=== PATIENT | female | born 1960 | race Caucasian/White ===

== ENCOUNTER → 2023-07-30 14:13 | Outpatient (REF) | payer BC, SELFPAY ==
[2023-07-30 16:31] LABS: Hematocrit 39.5 % (37.0-47.0); Hemoglobin 13.8 g/dL (12.0-16.0); Mean Corp Hgb Conc. 34.9 g/dL (33.0-37.0); Mean Corpuscular Hgb 32.5 pg (27.0-31.0); Mean Corpuscular Volume 92.9 fL (81.0-99.0); Mean Platelet Volume 9.5 fL (7.4-10.4); Platelet Count 194 10^3/uL (130-400); Red Blood Cell Count 4.25 10^6/uL (4.20-5.40); Red Cell Dist. Width 12.1 % (11.5-14.5); White Blood Cell Count 5.7 10^3/uL (4.8-10.8)
[2023-07-30 16:55] LABS: Blood Urea Nitrogen 18 mg/dl (7-17); Calcium 11.2 mg/dl (8.4-10.2); Carbon Dioxide 32 mmol/L (22-30); Chloride 98 mmol/L (98-107); Glucose 93 mg/dl (70-99); Magnesium 2.3 mg/dl (1.6-2.3); Potassium 4.5 mmol/L (3.5-5.1); Sodium 139 mmol/L (135-145); eGFR > 60.00
[2023-07-30 17:11] LABS: Free T4 1.58 ng/dl (0.78-2.19)
[2023-08-03 17:12] LABS: Myeloperoxidase Antibody 0 AU/mL (0-19)
== END ==
LOC: REG 14:13
PROVIDERS: ATTENDING PHYSICIAN Internal Medicine Endocrinology, Diabetes & Metabolism; REFERRING PHYSICIAN Nurse Practitioner
DX: R06.02 Shortness of breath (principal); E03.2 Hypothyroidism due to medicaments and other exogenous substances
CPT/HCPCS: 36415; 80048; 83516; 83735; 84439; 84443; 85027

== ENCOUNTER → 2023-09-17 08:57 | Outpatient (REF) | payer BC, SELFPAY ==
[2023-09-17 10:13] LABS: Ionized Calcium 1.36 mMOL/L (1.15-1.33)
[2023-09-17 10:58] LABS: ALT (SGPT) 17 U/L (0-35); AST (SGOT) 33 U/L (14-36); Albumin 4.6 g/dl (3.5-5.0); Alkaline Phosphatase 73 U/L (38-126); Blood Urea Nitrogen 19 mg/dl (7-17); Calcium 10.9 mg/dl (8.4-10.2); Carbon Dioxide 32 mmol/L (22-30); Chloride 102 mmol/L (98-107); Glucose 85 mg/dl (70-99); Potassium 4.2 mmol/L (3.5-5.1); Sodium 139 mmol/L (135-145); Total Bilirubin 0.8 mg/dl (0.2-1.3); Total Protein 6.7 g/dl (6.3-8.2); eGFR > 60.00
[2023-09-17 11:16] LABS: Vitamin D, 25-OH*** 37.5 ng/mL (30-80)
[2023-09-18 12:14] LABS: Intact PTH 124.8 pg/ml (13.6-85.8)
[2023-09-19 02:24] LABS: Vitamin D 1,25 Dihydroxy 47.8 pg/mL (19.9-79.3)
[2023-09-21 03:17] LABS: PTH Related Peptide LC-MS/MS 2.9 pmol/L (0.0-3.4)
== END ==
LOC: REG 08:57
PROVIDERS: ATTENDING PHYSICIAN Internal Medicine Endocrinology, Diabetes & Metabolism
DX: E03.2 Hypothyroidism due to medicaments and other exogenous substances (principal); E83.52 Hypercalcemia; E55.9 Vitamin D deficiency, unspecified
CPT/HCPCS: 36415; 80053; 82306; 82330; 82652; 83519; 83970

== ENCOUNTER → 2023-10-06 09:10 | Outpatient (REF) | payer MEDICARE, OTHER, SELFPAY | LOC: RAD 09:10 | PROVIDERS: ATTENDING PHYSICIAN Internal Medicine Endocrinology, Diabetes & Metabolism | DX: E83.52 Hypercalcemia (principal) | CPT/HCPCS: 76536; 78071; A9500 ==

== ENCOUNTER → 2023-11-10 07:52 | Outpatient (REF) | payer MEDICARE, OTHER, SELFPAY | LOC: MRI 07:52 | PROVIDERS: ATTENDING PHYSICIAN Neurological Surgery; OTHER PHYSICIAN Nurse Practitioner Acute Care; REFERRING PHYSICIAN Otolaryngology | DX: D33.4 Benign neoplasm of spinal cord (principal); R26.89 Other abnormalities of gait and mobility; G44.219 Episodic tension-type headache, not intractable | CPT/HCPCS: 70553; 72156; A9575 ==

== ENCOUNTER → 2023-11-12 15:03 | Outpatient (REF) | payer MEDICARE, OTHER, SELFPAY | LOC: HWRCS 15:03 | PROVIDERS: ATTENDING PHYSICIAN Nurse Practitioner | DX: R06.02 Shortness of breath (principal) | CPT/HCPCS: 93306 ==

== ENCOUNTER → 2023-12-14 10:18 | Outpatient (REF) | payer MEDICARE, OTHER, SELFPAY ==
[2023-12-14 11:18] LABS: % Eosinophils 6.4 % (0-6); % Immature Granulocytes 0.2 % (0-0.5); % Lymphocytes 31.9 % (20.5-51.1); % Monocytes 8.4 % (1.7-9.3); % Neutrophils 51.1 % (42.2-75.2); Absolute Basophils 0.1 10^3/uL (0-0.2); Absolute Eosinophils 0.3 10^3/uL (0-0.7); Absolute Lymphocytes 1.6 10^3/uL (1.2-3.4); Absolute Monocytes 0.4 10^3/uL (0.1-0.6); Absolute Neutrophils 2.6 10^3/uL (1.4-6.5); Hematocrit 39.3 % (37.0-47.0); Hemoglobin 13.8 g/dL (12.0-16.0); Mean Corp Hgb Conc. 35.1 g/dL (33.0-37.0); Mean Corpuscular Hgb 32.8 pg (27.0-31.0); Mean Corpuscular Volume 93.3 fL (81.0-99.0); Nucleated Red Blood Cells % 0 %; Platelet Count 172 10^3/uL (130-400); Red Blood Cell Count 4.21 10^6/uL (4.20-5.40); Red Cell Dist. Width 12.2 % (11.5-14.5)
[2023-12-14 11:30] LABS: Ionized Calcium 1.37 mMOL/L (1.15-1.33)
[2023-12-14 11:59] LABS: Blood Urea Nitrogen 20 mg/dl (7-17); Calcium 10.8 mg/dl (8.4-10.2); Carbon Dioxide 32 mmol/L (22-30); Chloride 101 mmol/L (98-107); Glucose 88 mg/dl (70-99); Potassium 4.4 mmol/L (3.5-5.1); Sodium 139 mmol/L (135-145); eGFR > 60.00
[2023-12-14 12:06] LABS: Intact PTH 173.5 pg/ml (13.6-85.8)
[2023-12-14 12:11] LABS: Vitamin D, 25-OH*** 33.1 ng/mL (30-80)
== END ==
LOC: REG 10:18
PROVIDERS: OTHER PHYSICIAN Surgery
DX: E21.3 Hyperparathyroidism, unspecified (principal)
CPT/HCPCS: 36415; 80048; 82306; 82330; 83970; 85025; 93005

== ENCOUNTER → 2024-01-20 11:42 | Outpatient (REF) | payer MEDICARE, OTHER, SELFPAY ==
[2024-01-20 12:40] LABS: Ionized Calcium 1.19 mMOL/L (1.15-1.33)
[2024-01-20 13:29] LABS: ALT (SGPT) 14 U/L (0-35); AST (SGOT) 30 U/L (14-36); Albumin 4.5 g/dl (3.5-5.0); Alkaline Phosphatase 72 U/L (38-126); Blood Urea Nitrogen 18 mg/dl (7-17); Calcium 9.8 mg/dl (8.4-10.2); Carbon Dioxide 33 mmol/L (22-30); Chloride 102 mmol/L (98-107); Glucose 86 mg/dl (70-99); Potassium 4.7 mmol/L (3.5-5.1); Sodium 142 mmol/L (135-145); Total Bilirubin 0.6 mg/dl (0.2-1.3); Total Protein 6.4 g/dl (6.3-8.2); eGFR > 60.00
[2024-01-20 13:49] LABS: Free T4 1.45 ng/dl (0.78-2.19); Vitamin D, 25-OH*** 37.3 ng/mL (30-80)
[2024-01-20 14:03] LABS: TSH 0.28 uIU/ml (0.47-4.68)
[2024-01-22 10:09] LABS: Intact PTH 57.4 pg/ml (13.6-85.8)
[2024-01-22 14:24] LABS: Thyroglobulin 0.1 ng/mL (1.3-31.8); Thyroglobulin Antibodies <0.9 IU/mL (0.0-4.0)
== END ==
LOC: REG 11:42
PROVIDERS: ATTENDING PHYSICIAN Internal Medicine Endocrinology, Diabetes & Metabolism; REFERRING PHYSICIAN Nurse Practitioner Family
DX: E21.3 Hyperparathyroidism, unspecified (principal); E03.2 Hypothyroidism due to medicaments and other exogenous substances; E83.52 Hypercalcemia; E55.9 Vitamin D deficiency, unspecified; Z85.850 Personal history of malignant neoplasm of thyroid
CPT/HCPCS: 36415; 80053; 82306; 82330; 82652; 83519; 83970; 84432; 84439; 84443; 86800

== ENCOUNTER → 2024-05-02 11:25 | Outpatient (REF) | payer MEDICARE, OTHER, SELFPAY ==
[2024-05-02 12:41] LABS: Ionized Calcium 1.24 mMOL/L (1.15-1.33)
[2024-05-02 12:46] LABS: % Basophils 1.9 % (0-2); % Immature Granulocytes 0.2 % (0-0.5); % Lymphocytes 34.2 % (20.5-51.1); % Monocytes 8.7 % (1.7-9.3); Absolute Basophils 0.1 10^3/uL (0-0.2); Absolute Eosinophils 0.3 10^3/uL (0-0.7); Absolute Lymphocytes 1.8 10^3/uL (1.2-3.4); Absolute Monocytes 0.5 10^3/uL (0.1-0.6); Absolute Neutrophils 2.6 10^3/uL (1.4-6.5); Hematocrit 42.2 % (37.0-47.0); Hemoglobin 14.3 g/dL (12.0-16.0); Mean Corp Hgb Conc. 33.9 g/dL (33.0-37.0); Mean Corpuscular Hgb 32.4 pg (27.0-31.0); Mean Corpuscular Volume 95.5 fL (81.0-99.0); Mean Platelet Volume 9.3 fL (7.4-10.4); Nucleated Red Blood Cells % 0 %; Platelet Count 189 10^3/uL (130-400); Red Blood Cell Count 4.42 10^6/uL (4.20-5.40); Red Cell Dist. Width 12.3 % (11.5-14.5); White Blood Cell Count 5.3 10^3/uL (4.8-10.8)
[2024-05-02 13:17] LABS: Calcium 9.8 mg/dl (8.4-10.2)
[2024-05-02 13:19] LABS: ALT (SGPT) 18 U/L (0-35); AST (SGOT) 31 U/L (14-36); Albumin 4.8 g/dl (3.5-5.0); Alkaline Phosphatase 65 U/L (38-126); Blood Urea Nitrogen 17 mg/dl (7-17); Calcium 9.7 mg/dl (8.4-10.2); Carbon Dioxide 32 mmol/L (22-30); Chloride 101 mmol/L (98-107); Glucose 92 mg/dl (70-99); HDL Cholesterol 104 mg/dl; LDL Cholesterol, Calculated 150 mg/dl; Potassium 4.3 mmol/L (3.5-5.1); Sodium 142 mmol/L (135-145); Total Bilirubin 0.5 mg/dl (0.2-1.3); Total Cholesterol 269 mg/dl (50-199); Total Protein 6.8 g/dl (6.3-8.2); Triglyceride 76 mg/dl (10-149); Very Low Density Lipoprotein 15 mg/dl (0-30); eGFR > 60.00
[2024-05-02 13:34] LABS: Free T4 1.86 ng/dl (0.78-2.19)
[2024-05-03 11:24] LABS: Intact PTH 89.8 pg/ml (13.6-85.8)
== END ==
LOC: REG 11:25
PROVIDERS: ATTENDING PHYSICIAN Internal Medicine Endocrinology, Diabetes & Metabolism; FAMILY PHYSICIAN Physical Medicine & Rehabilitation; OTHER PHYSICIAN Nurse Practitioner Family; REFERRING PHYSICIAN Nurse Practitioner
DX: E03.2 Hypothyroidism due to medicaments and other exogenous substances (principal); Z85.850 Personal history of malignant neoplasm of thyroid; E83.52 Hypercalcemia; R00.2 Palpitations; I49.3 Ventricular premature depolarization; E21.3 Hyperparathyroidism, unspecified
CPT/HCPCS: 36415; 80053; 80061; 82330; 83970; 84439; 84443; 85025

== ENCOUNTER → 2024-05-03 13:09 | Outpatient (REF) | payer MEDICARE, OTHER, SELFPAY ==
[2024-05-03 14:56] LABS: Vitamin D, 25-OH*** 33.3 ng/mL (30-80)
[2024-05-05 18:29] LABS: Thyroglobulin <0.1 ng/mL (1.3-31.8); Thyroglobulin Antibodies <0.9 IU/mL (0.0-4.0); Thyroid Peroxidase Ab (TPO) 10.9 IU/mL (0.0-9.0)
== END ==
LOC: RCS 13:09
PROVIDERS: ATTENDING PHYSICIAN Internal Medicine Endocrinology, Diabetes & Metabolism; FAMILY PHYSICIAN Nurse Practitioner Family
DX: R00.2 Palpitations (principal); I49.3 Ventricular premature depolarization
CPT/HCPCS: 36415; 82306; 84432; 86376; 86800; 93225; 93226

== ENCOUNTER → 2024-05-05 14:46 | Outpatient (REF) | payer MEDICARE, OTHER, SELFPAY | LOC: RAD 14:46 | PROVIDERS: ATTENDING PHYSICIAN Internal Medicine Cardiovascular Disease | DX: R53.83 Other fatigue (principal) | CPT/HCPCS: 71046 ==

== ENCOUNTER → 2024-07-20 14:24 | Outpatient (REF) | payer MEDICARE, OTHER, SELFPAY ==
[2024-07-20 15:33] LABS: % Basophils 1.9 % (0-2); % Eosinophils 5.3 % (0-6); % Immature Granulocytes 0.2 % (0-0.5); % Monocytes 6.6 % (1.7-9.3); Absolute Basophils 0.1 10^3/uL (0-0.2); Absolute Eosinophils 0.3 10^3/uL (0-0.7); Absolute Lymphocytes 1.7 10^3/uL (1.2-3.4); Absolute Monocytes 0.4 10^3/uL (0.1-0.6); Absolute Neutrophils 2.8 10^3/uL (1.4-6.5); Hematocrit 39.4 % (37.0-47.0); Hemoglobin 13.4 g/dL (12.0-16.0); Mean Corpuscular Hgb 32.1 pg (27.0-31.0); Mean Corpuscular Volume 94.3 fL (81.0-99.0); Nucleated Red Blood Cells % 0 %; Platelet Count 174 10^3/uL (130-400); Red Blood Cell Count 4.18 10^6/uL (4.20-5.40); Red Cell Dist. Width 12.3 % (11.5-14.5); White Blood Cell Count 5.3 10^3/uL (4.8-10.8)
[2024-07-20 15:54] LABS: Alkaline Phosphatase 70 U/L (38-126); Blood Urea Nitrogen 22 mg/dl (7-17); Calcium 9.7 mg/dl (8.4-10.2); Carbon Dioxide 30 mmol/L (22-30); Chloride 99 mmol/L (98-107); Glucose 87 mg/dl (70-99); Phosphorus 3.7 mg/dl (2.5-4.5); Potassium 4.3 mmol/L (3.5-5.1); Sodium 137 mmol/L (135-145); eGFR > 60.00
[2024-07-20 16:10] LABS: Free T4 1.51 ng/dl (0.78-2.19); Vitamin D, 25-OH*** 33.9 ng/mL (30-80)
[2024-07-20 16:23] LABS: TSH 0.78 uIU/ml (0.47-4.68)
[2024-07-22 09:36] LABS: Intact PTH 69.1 pg/ml (13.6-85.8)
[2024-07-22 15:57] LABS: Thyroglobulin 0.1 ng/mL (1.3-31.8); Thyroglobulin Antibodies <1.5 IU/mL (0.0-4.0)
[2024-07-22 21:32] LABS: Total T3 (Sendout) 92 ng/dL (80-200)
== END ==
LOC: REG 14:24
PROVIDERS: ATTENDING PHYSICIAN Internal Medicine; OTHER PHYSICIAN Nurse Practitioner Family; OTHER PHYSICIAN Surgery
DX: E21.3 Hyperparathyroidism, unspecified (principal); Z85.850 Personal history of malignant neoplasm of thyroid; M47.816 Spondylosis without myelopathy or radiculopathy, lumbar region; D33.4 Benign neoplasm of spinal cord; C79.51 Secondary malignant neoplasm of bone
CPT/HCPCS: 36415; 80048; 82306; 82310; 82330; 83970; 84075; 84100; 84432; 84436; 84439; 84443; 84480; 85025; 86800

== ENCOUNTER → 2024-08-17 13:02 | Outpatient (REF) | payer MEDICARE, OTHER, SELFPAY | LOC: RCS 13:02 | PROVIDERS: ATTENDING PHYSICIAN Internal Medicine Cardiovascular Disease | DX: R00.2 Palpitations (principal); I49.3 Ventricular premature depolarization; I34.0 Nonrheumatic mitral (valve) insufficiency; I49.1 Atrial premature depolarization; E78.00 Pure hypercholesterolemia, unspecified; R00.0 Tachycardia, unspecified | CPT/HCPCS: 93017; 93350 ==

== ENCOUNTER → 2024-09-28 13:08 | Outpatient (REF) | payer MEDICARE, OTHER, SELFPAY | LOC: RAD 13:08 | PROVIDERS: ATTENDING PHYSICIAN Internal Medicine; REFERRING PHYSICIAN Internal Medicine Cardiovascular Disease | DX: E21.3 Hyperparathyroidism, unspecified (principal); C73 Malignant neoplasm of thyroid gland | CPT/HCPCS: 76536 ==

== ENCOUNTER → 2024-11-09 14:37 | Outpatient (REF) | payer MEDICARE, OTHER, SELFPAY ==
[2024-11-09 16:15] LABS: Blood Urea Nitrogen 17 mg/dl (7-17); Calcium 9.5 mg/dl (8.4-10.2); Carbon Dioxide 31 mmol/L (22-30); Chloride 105 mmol/L (98-107); Glucose 92 mg/dl (70-99); Phosphorus 3.3 mg/dl (2.5-4.5); Potassium 4.3 mmol/L (3.5-5.1); Sodium 140 mmol/L (135-145); eGFR > 60.00
[2024-11-09 16:30] LABS: Free T4 1.67 ng/dl (0.78-2.19)
[2024-11-09 16:44] LABS: TSH 0.38 uIU/ml (0.47-4.68)
[2024-11-10 15:20] LABS: Intact PTH 109.5 pg/ml (13.6-85.8)
[2024-11-11 21:15] LABS: Thyroglobulin <0.1 ng/mL (1.3-31.8); Thyroglobulin Antibodies <1.5 IU/mL (0.0-4.0)
[2024-11-12 05:16] LABS: Total T3 (Sendout) 111 ng/dL (80-200)
== END ==
LOC: RAD 14:37
PROVIDERS: ATTENDING PHYSICIAN Internal Medicine
DX: C73 Malignant neoplasm of thyroid gland (principal); E21.3 Hyperparathyroidism, unspecified
CPT/HCPCS: 36415; 80048; 83970; 84100; 84432; 84439; 84443; 84480; 86800

== ENCOUNTER → 2024-11-16 15:08 | Outpatient (REF) | payer MEDICARE, OTHER, SELFPAY | LOC: RAD 15:08 | PROVIDERS: ATTENDING PHYSICIAN Specialist; OTHER PHYSICIAN Internal Medicine Cardiovascular Disease | DX: R10.13 Epigastric pain (principal) | CPT/HCPCS: 76770 ==

== ENCOUNTER 2024-11-17 06:21 | Day surgery (SDC) | payer MEDICARE, OTHER, SELFPAY | END 2024-11-17 12:30 | disposition home or self-care (01) | LOC: GI 06:21 | PROVIDERS: ATTENDING PHYSICIAN Specialist | DX: R13.10 Dysphagia, unspecified (principal); R07.89 Other chest pain; K22.2 Esophageal obstruction; K31.7 Polyp of stomach and duodenum | CPT/HCPCS: 43239; 88305 ==

== ENCOUNTER → 2025-03-07 13:43 | Outpatient (REF) | payer MEDICARE, OTHER, SELFPAY ==
[2025-03-07 15:02] LABS: 24 Hour Urine Total Volume 1600 ml
== END ==
LOC: REG 13:43
PROVIDERS: ATTENDING PHYSICIAN Internal Medicine
DX: E21.3 Hyperparathyroidism, unspecified (principal)
CPT/HCPCS: 81050; 82340; 82570

== ENCOUNTER → 2025-03-14 10:21 | Outpatient (REF) | payer MEDICARE, OTHER, SELFPAY | LOC: RAD 10:21 | PROVIDERS: ATTENDING PHYSICIAN Internal Medicine | DX: R10.9 Unspecified abdominal pain (principal); N20.0 Calculus of kidney | CPT/HCPCS: 74176 ==

== ENCOUNTER → 2025-03-19 08:55 | Outpatient (REF) | payer MEDICARE, OTHER, SELFPAY ==
[2025-03-19 13:20] LABS: Blood Urea Nitrogen 15 mg/dl (7-17); Calcium 9.8 mg/dl (8.4-10.2); Carbon Dioxide 33 mmol/L (22-30); Chloride 103 mmol/L (98-107); Glucose 59 mg/dl (70-99); Potassium 4.2 mmol/L (3.5-5.1); Sodium 142 mmol/L (135-145); eGFR > 60.00
[2025-03-19 13:35] LABS: TSH 1.00 uIU/ml (0.47-4.68)
== END ==
LOC: RAD 08:55
PROVIDERS: ATTENDING PHYSICIAN Internal Medicine
DX: E21.0 Primary hyperparathyroidism (principal); C73 Malignant neoplasm of thyroid gland
CPT/HCPCS: 36415; 78071; 80048; 83970; 84439; 84443; A9500